=== PATIENT | female | born 1985 | race Two or more races ===

== ENCOUNTER 2019-03-27 10:52 | Inpatient (IN) | payer OTHER ==
[~2019-03-27] VITALS: Ht 167.6 cm; Wt 111.6 kg
[2019-04-08] MEDS ORDERED: PRENATAL TABLE1 EAC1 PO (05:14)
== END 2019-04-10 10:41 | disposition home or self-care (01) | DRG 807 ==
LOC: OB/GYN 04-02 12:00 → LDR 04-08 04:11 → OB/GYN 04-08 04:28 → LDR 04-08 05:02 → OB/GYN 04-08 12:00
PROVIDERS: ADMIT Obstetrics & Gynecology
PROC: 10E0XZZ Delivery of Products of Conception, External Approach (ICD-10-PCS; principal; 2019-04-08)
PROC: 0HQ9XZZ Repair Perineum Skin, External Approach (ICD-10-PCS; 2019-04-08)
PROC: 4A1HXCZ Monitoring of Products of Conception, Cardiac Rate, External Approach (ICD-10-PCS; 2019-04-08)
PROC: 3E033VJ Introduction of Other Hormone into Peripheral Vein, Percutaneous Approach (ICD-10-PCS; 2019-04-08)
DX: O70.0 First degree perineal laceration during delivery (principal); Z37.0 Single live birth; Z3A.39 39 weeks gestation of pregnancy